=== PATIENT | female | born 1960 | race Caucasian/White ===

== ENCOUNTER → 2023-08-14 16:38 | Outpatient (REF) | payer OTHER, SELFPAY | LOC: WDC 16:38 | PROVIDERS: ATTENDING PHYSICIAN Obstetrics & Gynecology; FAMILY PHYSICIAN Physician Assistant | DX: Z12.31 Encounter for screening mammogram for malignant neoplasm of breast (principal) | CPT/HCPCS: 77063; 77067 ==

== ENCOUNTER → 2024-06-26 08:14 | Outpatient (REF) | payer OTHER, SELFPAY | LOC: HWRAD 08:14 | PROVIDERS: ATTENDING PHYSICIAN Advanced Practice Midwife; FAMILY PHYSICIAN Physician Assistant; REFERRING PHYSICIAN Obstetrics & Gynecology | DX: R10.2 Pelvic and perineal pain (principal) | CPT/HCPCS: 76830; 76856 ==

== ENCOUNTER → 2024-08-15 10:31 | Outpatient (REF) | payer OTHER, SELFPAY | LOC: WDC 10:31 | PROVIDERS: ATTENDING PHYSICIAN Obstetrics & Gynecology; FAMILY PHYSICIAN Physician Assistant | DX: Z12.31 Encounter for screening mammogram for malignant neoplasm of breast (principal) | CPT/HCPCS: 77063; 77067 ==

== ENCOUNTER → 2024-08-28 09:34 | Outpatient (REF) | payer OTHER, SELFPAY | LOC: WDC 09:34 | PROVIDERS: ATTENDING PHYSICIAN Obstetrics & Gynecology; FAMILY PHYSICIAN Physician Assistant | DX: R92.8 Other abnormal and inconclusive findings on diagnostic imaging of breast (principal) | CPT/HCPCS: 76642 ==

== ENCOUNTER → 2024-09-25 10:49 | Outpatient (REF) | payer OTHER, SELFPAY | LOC: WDC 10:49 | PROVIDERS: ATTENDING PHYSICIAN Obstetrics & Gynecology; FAMILY PHYSICIAN Physician Assistant | DX: R92.2 Inconclusive mammogram (principal) | CPT/HCPCS: 76641 ==

== ENCOUNTER 2024-12-16 06:14 | Inpatient (IN) | payer OTHER, SELFPAY ==
[2024-12-15 21:46] VITALS: BP 109/60
[2024-12-15 22:05] LABS: Hematocrit 37.1 % (37.0-47.0); Hemoglobin 12.8 g/dL (12.0-16.0); Mean Corp Hgb Conc. 34.5 g/dL (33.0-37.0); Mean Corpuscular Volume 93.5 fL (81.0-99.0); Nucleated Red Blood Cells % 0 %; Platelet Count 286 10^3/uL (130-400); Red Cell Dist. Width 12.5 % (11.5-14.5)
[2024-12-15 22:27] LABS: ALT (SGPT) 13 U/L (0-35); AST (SGOT) 20 U/L (14-36); Albumin 4.4 g/dl (3.5-5.0); Alkaline Phosphatase 91 U/L (38-126); Blood Urea Nitrogen 13 mg/dl (7-17); Calcium 9.5 mg/dl (8.4-10.2); Carbon Dioxide 21 mmol/L (22-30); Chloride 105 mmol/L (98-107); Glucose 139 mg/dl (70-99); Lipase 36 U/L (23-300); Potassium 4.1 mmol/L (3.5-5.1); Sodium 137 mmol/L (135-145); Total Protein 7.0 g/dl (6.3-8.2); eGFR > 60.00
[2024-12-16] VITALS (8 sets, daily range): BP systolic 102–147; BP diastolic 60–73; BMI 23.8
--- NOTE | 2024-12-16 02:11 | ED.GENMED ---
History of Present Illness
General
Chief Complaint: Abdominal Pain
Source: patient and spouse
Exam Limitations: none
Time Seen by Provider: 12/16/24 01:56
Nursing documentation reviewed up to this point in time: agreed with
History of Present Illness
History of Present Illness:
This is a 64-year-old woman with history of irritable bowel syndrome, generally well-controlled with last flare approximately 3 years ago. She complains of 1 week history of intermittent crampy lower abdominal pain that has been persistent
throughout the week, much worse throughout the day today and tonight she developed diaphoresis, nausea, dizziness, felt that she was going to pass out. She has not had a fever. Abdominal pain is primarily left lower quadrant, occasionally radiates
to her back. She denies dysuria and urgency and or hematuria. She denies cough nor chest pain nor shortness of breath. She denies diarrhea. She has been passing her bowels normally and did pass a somewhat hard stool today. She denies
hematochezia.
Due to worsening pain today she took a dose of Bentyl, Aleve without improvement.
She takes no medicines on a daily basis.
She has history of colon polyps undergoing colonoscopies every 3 years; last colonoscopy February 2023. A 12 mm polyp in the transverse colon was removed. There was also note of multiple small and large mouth diverticula within the colon. Small
internal hemorrhoids.
Past History
Past History
ED Past Medical History: Other (Irritable bowel syndrome, colon polyps, diverticulosis)
ED Past Surgical History: Urological (Bladder sling procedure)
Social History
Tobacco: Non-smoker
Alcohol: Occasional
Drug: None
Personal:
Living: with family
Employment: Employed
Family History
Family History: Cancer (Colon cancer)
Phy Exam
Physical Exam
Physical Exam:
GENERAL: 64-year-old woman appears somewhat younger than stated age, bright and alert, pleasant, appears in no acute distress. Low-grade fever noted 100.4 �F. is accompanying.
EYE: anicteric
NECK: Supple, nontender, no meningismus, no significant adenopathy.
ENT: oral mucosa is moist. No rhinorrhea.
CARDIAC: Regular rate and rhythm. no murmur.
LUNGS: Clear breath sounds bilaterally, no acute respiratory distress, no wheezes/rales/rhonchi
ABDOMEN: Soft, nondistended, moderate tenderness left lower quadrant, suprapubic without rebound nor guarding or rigidity. No palpable masses. no cvat. normoactive BS.
NEUROLOGICAL: Alert and oriented x3, no focal neuro deficits. Gait is steady.
SKIN: Warm and dry, normal color, skin intact. No rash.
MUSCULOSKELETAL: No C/C/E. peripheral pulses are full and equal b/l. No palpable tenderness.
PSYCH: Normal and appropriate interaction.
Course
Orders/Labs/Results
Orders:
Orders
12/15/24 21:58
Complete Blood Count/With Diff Urgent
Comprehensive Metabolic Panel Urgent
Lipase Urgent
12/16/24 02:06
Urinalysis Reflex To Culture Urgent
Date Specimen was Collected: 12/16/24
Time Specimen was Collected: 02:02
Urine Microscopic Reflex Cult Urgent
Urine Culture Urgent
HERNAN Source: U
Specimen Description:
Date Specimen was Collected: 12/16/24
Time Specimen was Collected: 02:02
12/16/24 02:10
CT Abd/pelvis W Iv Cont Urgent
Comment:
Reason For Exam: LLQ pain, fever, WBC 16
0.9% Sodium Chloride 1000 ml [Nss] 1,000 ml IV BOLUS
Acetaminophen [Tylenol] 1,000 mg PO NOW STA
12/16/24 04:57
Piperacillin/Tazo 4.5 Gram [Zosyn] 4.5 gram in 100 ml IV NOW
12/16/24 05:02
HYDROmorphone [Dilaudid] 0.5 mg IV NOW STA
12/16/24 05:02
0.9% Sodium Chloride 1000 ml [Nss] 1,000 ml IV 150 mls/hr
Abnormal Lab Results
12/15/24 12/16/24
21:58 02:06
WBC 15.8 H 10^3/uL
(4.8-10.8)
RBC 3.97 L 10^6/uL
(4.20-5.40)
MCH 32.2 H pg
(27.0-31.0)
Abs Immat Gran (auto) 0.1 H 10^3/uL
(0-0.05)
Absolute Neuts (auto) 13.3 H 10^3/uL
(1.4-6.5)
Absolute Monos (auto) 0.7 H 10^3/uL
(0.1-0.6)
Neutrophils % 84.4 H %
(42.2-75.2)
Lymphocytes % 10.3 L %
(20.5-51.1)
Carbon Dioxide 21 L mmol/L
(22-30)
Glucose 139 H mg/dl
(70-99)
Urine Ketones 3+ A
(Negative)
Leukocyte Esterase Rfl 1+ A
(Negative)
Urine Bacteria (Reflex) Moderate A
(Negative)
Urine Albumin (Reflex) 1+ A
(Neg - Trace)
12/15/24 21:58
12/15/24 21:58
Vital Signs
Temp: 100.4 F
Initial and Last Documented VS:
Initial Vital Signs
Temp Pulse Resp BP Pulse Ox
98.0 F 80 18 109/60 97
12/15/24 21:46 12/15/24 21:46 12/15/24 21:46 12/15/24 21:46 12/15/24 21:46
Last Documented Vital Signs
Temp Pulse Resp BP Pulse Ox
100.4 F H 70 16 112/73 97
12/16/24 02:17 12/16/24 01:00 12/16/24 00:26 12/16/24 02:00 12/16/24 02:17
MDM/Problems Addressed
Differential Diagnosis Includes:
Concern for diverticulitis, colitis, exacerbation of irritable bowel syndrome, UTI, pyelonephritis, kidney stone. Less likely appendicitis.
Labs show elevated white blood cell count of 15.8. Unremarkable chemistries.
Will check urinalysis
Will check CT abdomen pelvis with IV contrast.
Will give Tylenol for fever, initiate IV fluids.
Chronic conditions affecting care: Other (Diverticulosis of colon noted on colonoscopy 2022. History of irritable bowel syndrome.)
*Radiology
Radiology exam reviewed: radiology read reviewed
*Pulse Oximetry
SaO2: 97
Oxygen Mode of Delivery: Room air
Patient hypoxic: no
*Critical Care Note
Total Time (30-74mins, 75-104mins- exclusive of procedures): Not Applicable
Update Note
Update Note:
05:00
CAT scan shows acute sigmoid diverticulitis with significant wall thickening throughout the sigmoid colon. There is no free fluid nor free air and no evidence of abscess formation.
Due to significant bowel wall inflammation, elevated white blood cell count, fever and significant left lower quadrant tenderness patient will require acute hospitalization for IV fluids, bowel rest, antibiotics and pain management.
ED Attending Note
-
Portions of this chart may have been created with voice recognition software.� Occasional wrong word or��sound alike� substitutions may have occurred due to the inherent limitations of voice recognition software.
Discharge Plan
Departure
Patient Disposition: Admit
Date of Disposition: 12/16/24
Time of Disposition: 05:04
Admit to: Med/Surg
Admit to doctor: Mark Anthony
Presentation/result/management discussed w/ accepting MD/DO: Hospitalist
Condition: Fair
Discharge Problem:
Acute sigmoid diverticulitis
Prescriptions:
No Action
lansoprazole 30 MG capsule,delayed release(DR/EC)
30 mg PO DAILY
vitamin B complex [B-Complex] 1 TAB tablet
1 tab PO DAILY
psyllium husk [Metamucil] 0.52 G capsule
1 cap PO DAILY
vitamin E (dl, acetate) 100 UNITS capsule
100 units PO DAILY
multivitamin with folic acid [Tab-A-Stacie] 1 TABLET tablet
1 tab PO DAILY
Calcium Carb/Vit D3/Mag11/Zinc
1 cap PO DAILY
Referrals:
Jennie Fay PA-C [Family Provider, Internal Medicine]
Interventions
Interventions:
*Risk Screen - Suicide Last Done: 12/15/24 21:49
*General Assessment Last Done: 12/15/24 21:49
*Neglect/Abuse Screening Last Done: 12/15/24 21:49
*ED COVID-19 Vaccine History Last Done: 12/15/24 21:49
HH-Iblkyy-Mvcevhmquh Assessment Last Done: 12/16/24 00:26
Discharge Date and Time
Print Language: GREENLANDIC
[2024-12-16 02:14] LABS: Urine Character Clear (Clear)
[2024-12-16] MEDS: NSS 1000 IV ×2 (02:16→05:08)
[2024-12-16] MEDS: TYLENOL 1000 MG PO (02:17)
[2024-12-16 02:36] LABS: Urine Red Blood Cell 0-2 /HPF (0-2); Urine Squamous Cell 21-25 /LPF (Few)
[2024-12-16] MEDS: DILAUDID 0.5 MG IV ×2 (05:08→09:11)
[2024-12-16] MEDS: ZOSYN 100 IV (05:08)
--- NOTE | 2024-12-16 06:08 | HPS.HSE ---
Family Physician
-
Family Physician: Jennie Fay
Chief Complaint
-
Abd Pain
History of Present Illness
Patient is a 64y F with PMH significant for IBS who presents to ED complaining of abdominal pain. Patient states that she has been having crampy lower abdominal pain for about one week. She has had similar symptoms in the past with her IBS so
she thought little of it. Today her pain became much more severe. She developed nausea without emesis. She became lightheaded and diaphoretic. With worsening symptoms she presented to the ED for further evaluation.
Patient denies any prior history of diverticulitis.
Medical History
Past Medical History
Past Medical History: Reports Other
Additional Past Medical History:
IBS
Non-Melanoma Skin Cancer
Past Surgical History: Reports Other
Additional Past Surgical History:
Bladder Sling
Social History
Tobacco: Non-smoker
Alcohol: Occasional
Drug: None
Personal:
Living: With Family
Family History
Family History: Not pertinent
Allergies / Home Medications
Allergies reflects when Allergies were last updated in [facility].
Home Medications with original date entered in [facility]
Allergy/Medication List:
Allergies
Allergy/AdvReac Type Severity Reaction Status Date / Time
azithromycin Allergy Tongue Verified 12/15/24 21:48
Swelling
Home Medications
No Meds [No Current Medications] 12/16/24
Review of Systems
-
History Source: Patient
A 12 point ROS was completed and negative except as noted: Yes
Constitutional: Reports Fatigue and Chills; Denies Fever
EENT: Denies Sore Throat or Runny Nose
Respiratory: Denies Cough or Trouble Breathing
Cardiac: Denies Chest Pain or Palpitations
Abdomen/GI: Reports Abdominal Pain and Nausea; Denies Vomiting, Diarrhea, Constipated, Bloody Stools or Black Stools
: Denies Dysuria or Frequency
Musculoskeletal: Denies Joint Pain or Edema
Neurological: Denies Dizzy or Headache
Physical Exam
Vital Signs
Vital Signs
Temp Pulse Resp BP Pulse Ox
98.7 F 62 16 103/67 97
12/16/24 05:10 12/16/24 05:10 12/16/24 05:10 12/16/24 05:09 12/16/24 05:10
Physical Exam
General: Other (64y F in no acute distress.)
HEENT: Moist mucous membranes and PERRLA
Respiratory: Clear; No Wheezes, Rales or Rhonchi
Cardiac: S1/S2 and Regular Rhythm; No Murmur
GI: Soft, Non Distended, Normal Bowel Sounds and Other (Pos lower abdominal tenderness without rebound / guarding. Pos BS.)
Musculoskeletal: No Clubbing, No Cyanosis and No Edema
Neuro: AO x 3
Laboratory Results
-
12/15/24 21:58
12/15/24 21:58
Laboratory Results
Total Bilirubin 1.3 mg/dl (0.2-1.3) 12/15/24 21:58
AST 20 U/L (14-36) 12/15/24 21:58
ALT 13 U/L (0-35) 12/15/24 21:58
Alkaline Phosphatase 91 U/L (38-126) 12/15/24 21:58
Lipase 36 U/L (23-300) 12/15/24 21:58
Impression/Plan
-
A/P: Patient is a 64y F with PMH significant for IBS who presents to ED complaining of abdominal pain.
Acute Sigmoid Diverticulitis
- Admit for further evaluation and treatment.
- 1st episode of diverticulitis.
- CT done in the ED without evidence of perforation / abscess.
- IV abx with Zosyn.
- Pain control, IVFs, etc.
- Follow for clinical improvement.
DVT Prophylaxis: SCDs
Code Status: Full
[2024-12-16] MEDS: LR 1000 IV ×2 (08:25→16:53)
--- NOTE | 2024-12-16 08:47 | W.PN.HOSP.TC ---
Today's Communication/Plan
-
IV antibiotics and IV fluids
Assessment / Plan
Assessment / Plan
Physical exam:
General: Acutely ill
HEENT: Normocephalic, Atraumatic and Moist Mucous Membranes
Respiratory: Clear to Auscultation; Negative Wheezes, Rales or Rhonchi
Cardiac: Regular Rhythm and S1/S2
GI: Soft, LLQ tender and Nondistended
Musculoskeletal: No Clubbing, No Cyanosis and No Edema
Neuro: Awake, Alert and Oriented, no gross neurological deficits
Psych: Calm
A/P:
Acute diverticulitis:
On clear liquid diet
Continue IV fluid
Pain control
Continue IV antibiotics, Zosyn
WBC 15.8--> 13.8
She tells me she follow-up with GI as outpatient and has serial colonoscopy every 3 years-will refer back to GI as outpatient upon discharge
Monitor clinical response
Other medical problems:
History of IBS
History of skin cancer
DVT Prophylaxis: SCDs
Code Status: Full
Anticipated Discharge: > 48 hours
Subjective/Interval History
-
Date of Service: December 16, 2024
Patient still having some abdominal pain. No nausea or vomiting. Afebrile
Objective Data
-
Labs:
Laboratory Results
12/15/24
21:58
WBC 15.8 H
Hgb 12.8
Hct 37.1
Plt Count 286
Sodium 137
Potassium 4.1
Chloride 105
Carbon Dioxide 21 L
BUN 13
Creatinine 0.6
Glucose 139 H
Calcium 9.5
Total Bilirubin 1.3
AST 20
ALT 13
Alkaline Phosphatase 91
Vital Signs:
Vital Signs
Temp Pulse Resp BP Pulse Ox
98.4 F 81 18 107/69 97
12/16/24 08:11 12/16/24 08:11 12/16/24 08:11 12/16/24 08:11 12/16/24 08:11
[2024-12-16 09:38] LABS: Hematocrit 37.3 % (37.0-47.0); Hemoglobin 12.4 g/dL (12.0-16.0); Mean Corp Hgb Conc. 33.2 g/dL (33.0-37.0); Mean Corpuscular Volume 94.9 fL (81.0-99.0); Nucleated Red Blood Cells % 0 %; Platelet Count 260 10^3/uL (130-400); Red Cell Dist. Width 12.5 % (11.5-14.5)
[2024-12-16 09:53] LABS: Blood Urea Nitrogen 11 mg/dl (7-17); Calcium 8.3 mg/dl (8.4-10.2); Carbon Dioxide 22 mmol/L (22-30); Chloride 107 mmol/L (98-107); Estimated Creatinine Clearance 77 ml/min; Glucose 102 mg/dl (70-99); Potassium 3.8 mmol/L (3.5-5.1); Sodium 137 mmol/L (135-145); eGFR > 60.00
[2024-12-16] MEDS: ZOSYN 50 IV ×2 (11:38→16:53)
[2024-12-16] MEDS: DILAUDID 1 MG IV ×2 (14:58→21:07)
--- NOTE | 2024-12-16 16:17 | CM ---
Patient seen bedside, initial assessment completed. Patient is a 64y F with PMH significant for IBS who presents to ED complaining of abdominal pain.
Patient resides w/ spouse in a [facility], no steps to enter. Independent in all areas, no DME. No therapy hx reported.
Address, point of contact and insurance verified
PCP: Jennie Fay
Pharmacy: [facility]
IV abx and fluids
Plan: Anticipate home, no needs
[2024-12-16] MEDS: TYLENOL 650 MG PO (16:53)
[2024-12-17] MEDS: ZOSYN 50 IV ×4 (01:07→17:30)
[2024-12-17] MEDS: LR 1000 IV (05:09)
[2024-12-17] MEDS: TYLENOL 650 MG PO ×2 (06:32→13:45)
[2024-12-17 07:12] VITALS: BP 113/65
[2024-12-17 08:42] LABS: Hematocrit 33.0 % (37.0-47.0); Hemoglobin 11.1 g/dL (12.0-16.0); Mean Corp Hgb Conc. 33.6 g/dL (33.0-37.0); Mean Corpuscular Volume 94.8 fL (81.0-99.0); Platelet Count 251 10^3/uL (130-400); Red Cell Dist. Width 12.7 % (11.5-14.5)
[2024-12-17 09:00] LABS: Blood Urea Nitrogen 11 mg/dl (7-17); Calcium 8.6 mg/dl (8.4-10.2); Carbon Dioxide 26 mmol/L (22-30); Chloride 105 mmol/L (98-107); Estimated Creatinine Clearance 77 ml/min; Glucose 84 mg/dl (70-99); Potassium 4.0 mmol/L (3.5-5.1); Sodium 136 mmol/L (135-145); eGFR > 60.00
--- NOTE | 2024-12-17 10:23 | W.PN.HOSP.TC ---
Today's Communication/Plan
-
Antibiotics. Advance diet
Assessment / Plan
Assessment / Plan
Physical exam:
General: Acutely ill
HEENT: Normocephalic, Atraumatic and Moist Mucous Membranes
Respiratory: Clear to Auscultation; Negative Wheezes, Rales or Rhonchi
Cardiac: Regular Rhythm and S1/S2
GI: Soft, LLQ tender and Nondistended
Musculoskeletal: No Clubbing, No Cyanosis and No Edema
Neuro: Awake, Alert and Oriented, no gross neurological deficits
Psych: Calm
A/P:
Acute diverticulitis:
Advance to full liquid diet today
Plan to advance to low residue diet either later tonight or tomorrow
Stop IV fluid
Pain control
Continue IV antibiotics, Zosyn
WBC 15.8--> 13.8-->13
She tells me she follow-up with GI as outpatient and has serial colonoscopy every 3 years-will refer back to GI as outpatient upon discharge
Monitor clinical response
Discussed with at bedside
Other medical problems:
History of IBS
History of skin cancer
DVT Prophylaxis: SCDs
Code Status: Full
Time spent 35 minutes
Anticipated Discharge: Within 24 hours
Subjective/Interval History
-
Date of Service: December 17, 2024
Patient still having abdominal discomfort but much improved. No nausea or vomiting
Objective Data
-
Labs:
Laboratory Results
12/17/24
07:06
WBC 13.0 H
Hgb 11.1 L
Hct 33.0 L
Plt Count 251
Sodium 136
Potassium 4.0
Chloride 105
Carbon Dioxide 26
BUN 11
Creatinine 0.7
Glucose 84
Calcium 8.6
Vital Signs:
Vital Signs
Temp Pulse Resp BP Pulse Ox
99.2 F 87 18 113/65 97
12/17/24 07:12 12/17/24 07:12 12/17/24 07:12 12/17/24 07:12 12/17/24 07:12
I&O
12/16/24 12/17/24 12/18/24
06:59 06:59 06:59
Intake Total 3361 / 3361
Balance 3361 / 3361
[2024-12-17 15:29] VITALS: BP 107/66
[2024-12-17 23:12] VITALS: BP 128/81
[2024-12-18] MEDS: ZOSYN 50 IV ×2 (00:26→05:10)
[2024-12-18] MEDS: BENADRYL 25 MG PO (01:31)
[2024-12-18 07:30] VITALS: BP 115/76
[2024-12-18 07:57] LABS: Hematocrit 33.3 % (37.0-47.0); Hemoglobin 11.2 g/dL (12.0-16.0); Mean Corp Hgb Conc. 33.6 g/dL (33.0-37.0); Mean Corpuscular Volume 94.1 fL (81.0-99.0); Nucleated Red Blood Cells % 0 %; Platelet Count 311 10^3/uL (130-400); Red Cell Dist. Width 12.5 % (11.5-14.5)
[2024-12-18] MEDS: MYLICON 80 MG PO (08:02)
[2024-12-18 08:57] LABS: Blood Urea Nitrogen 8 mg/dl (7-17); Calcium 8.6 mg/dl (8.4-10.2); Carbon Dioxide 22 mmol/L (22-30); Chloride 109 mmol/L (98-107); Estimated Creatinine Clearance 77 ml/min; Glucose 90 mg/dl (70-99); Potassium 3.9 mmol/L (3.5-5.1); Sodium 139 mmol/L (135-145); eGFR > 60.00
[2024-12-18] MEDS: FLAGYL 500 MG PO (09:09)
[2024-12-18] MEDS: CIPRO 500 MG PO (10:01)
--- NOTE | 2024-12-18 11:37 | CM ---
Patient seen at bedside
patient states discharge today
No needs
IMM n/a
PLAN: Home, no needs
to transport
--- NOTE | 2024-12-18 11:44 | W.PN.HOSP.TC ---
Today's Communication/Plan
-
Discharge planning today
Assessment / Plan
Assessment / Plan
Physical exam:
General: No acute distress
HEENT: Normocephalic, Atraumatic and Moist Mucous Membranes
Respiratory: Clear to Auscultation; Negative Wheezes, Rales or Rhonchi
Cardiac: Regular Rhythm and S1/S2
GI: Soft, LLQ very minimal tender and very minimal distended
Musculoskeletal: No Clubbing, No Cyanosis and No Edema
Neuro: Awake, Alert and Oriented, no gross neurological deficits
Psych: Calm
A/P:
Acute diverticulitis:
On low residue diet since last evening
Off IV fluid
Pain control
Continue IV antibiotics, Zosyn
WBC 15.8--> 13.8-->12.8
She tells me she follow-up with GI as outpatient and has serial colonoscopy every 3 years-will refer back to GI as outpatient upon discharge
Monitor clinical response
Discussed with at bedside prior
Plan to discharge today
Other medical problems:
History of IBS
History of skin cancer
DVT Prophylaxis: SCDs
Code Status: Full
Anticipated Discharge: Today
Subjective/Interval History
-
Date of Service: December 18, 2024
Feels better overall. Less abdominal pain. No nausea or vomiting and tolerated diet okay.
Objective Data
-
Labs:
Laboratory Results
12/18/24
06:35
WBC 12.8 H
Hgb 11.2 L
Hct 33.3 L
Plt Count 311 D
Sodium 139
Potassium 3.9
Chloride 109 H
Carbon Dioxide 22
BUN 8
Creatinine 0.7
Glucose 90
Calcium 8.6
Vital Signs:
Vital Signs
Temp Pulse Resp BP Pulse Ox
99.6 F 97 20 115/76 98
12/18/24 07:30 12/18/24 07:30 12/18/24 07:30 12/18/24 07:30 12/18/24 07:30
I&O
12/17/24 12/18/24 12/19/24
06:59 06:59 06:59
Intake Total 3361 / 3361 1919
Balance 3361 / 3361 1919
--- NOTE | 2024-12-18 11:46 | W.DCSUMMARY ---
Discharge Summary
Discharge Data
Date of Admission: 12/16/24
Date of Discharge: 12/18/24
Total time spent discharging patient (in min): 32
-
Pending Results: No
Hospital Course
Patient is 64 years old female history of IBS came into the hospital with acute diverticulitis. Patient was treated with bowel rest, IV fluids, IV antibiotics. She did well rest of the hospital stay. She was able to tolerate advancing her diet.
Her pain was much improved. Her white blood cell count trended down with IV antibiotics. Patient has been switched to oral antibiotics today. Will have her referral as outpatient to see GI for post diverticulitis evaluation. Patient will be
discharged in stable condition today.
Discharge duration: 32 minutes
Discharge Plan
-
Patient Disposition: Home (Routine Discharge)
Discharge Diagnosis/Procedures: Acute diverticulitis.
Condition: Fair
Diet: Low Residue
Additional Diets: Low residue for 2 weeks and then afterwards high-fiber diet.
Activity: As tolerated
Blood Work: Please PCP to order CBC, BMP within 1 week
Referrals:
Jennie Fay PA-C [Family Provider, Internal Medicine] - in less than 1 week
Beba Adams MD [Active, Gastroenterology] - in one to two months
Referral Note: Outpatient follow-up post diverticulitis.
Prescriptions:
New
metronidazole 500 mg Tablet
500 mg PO Q8 10 Days Qty: 30 0RF
ciprofloxacin HCl 500 mg Tablet
500 mg PO BID 10 Days Qty: 20 0RF
Discharge Orders:
Discharge Patient (As Directed); Ordered 12/18/24
Ordered By: Raymond Alvarado
Discharge Date and Time
Discharge Date/Time: 12/18/24 14:19
Print Language: YEMENI
[2024-12-18 12:54] VITALS: BP 118/68
== END 2024-12-18 14:19 | disposition home or self-care (01) | DRG 392 ==
LOC: 4 WEST ACU 06:14
PROVIDERS: Student in an Organized Health Care Education/Training Program; ADMITTING PHYSICIAN Hospitalist; ATTENDING PHYSICIAN Hospitalist; EMERGENCY PHYSICIAN Emergency Medicine; FAMILY PHYSICIAN Physician Assistant
DX: K57.32 Diverticulitis of large intestine without perforation or abscess without bleeding (principal)
CPT/HCPCS: 74177; 80048; 80053; 81003; 81015; 83690; 85025; 85027; 87086; 96361; 96365; 96375; 99285; Q9967

== ENCOUNTER → 2025-02-06 08:23 | Outpatient (REF) | payer OTHER, SELFPAY | LOC: RAD 08:23 | PROVIDERS: ATTENDING PHYSICIAN Internal Medicine Gastroenterology; FAMILY PHYSICIAN Physician Assistant | DX: K57.32 Diverticulitis of large intestine without perforation or abscess without bleeding (principal) | CPT/HCPCS: 74177; Q9967 ==

== ENCOUNTER 2025-03-09 06:30 | Day surgery (SDC) | payer OTHER, SELFPAY | END 2025-03-09 13:56 | disposition home or self-care (01) | LOC: GI 06:30 | PROVIDERS: ATTENDING PHYSICIAN Internal Medicine Gastroenterology | DX: Z12.11 Encounter for screening for malignant neoplasm of colon (principal); D12.7 Benign neoplasm of rectosigmoid junction; K57.30 Diverticulosis of large intestine without perforation or abscess without bleeding; K56.690 Other partial intestinal obstruction; Q43.8 Other specified congenital malformations of intestine; Z86.0100 Personal history of colon polyps, unspecified; Z80.0 Family history of malignant neoplasm of digestive organs | CPT/HCPCS: 45385; 45381; 88305 ==

== ENCOUNTER → 2025-03-31 07:52 | Outpatient (REF) | payer OTHER, SELFPAY | LOC: WDC 07:52 | PROVIDERS: ATTENDING PHYSICIAN Obstetrics & Gynecology; FAMILY PHYSICIAN Physician Assistant | DX: R92.8 Other abnormal and inconclusive findings on diagnostic imaging of breast (principal) | CPT/HCPCS: 76642 ==